=== PATIENT | male | born 1985 | race Two or more races ===

== ENCOUNTER 2021-01-22 04:20 | Day surgery (SDC) | payer OTHER, BC ==
[2021-01-16 11:47] VITALS: BMI 25.8
[2021-01-22] MEDS ORDERED: MIDAZOLAM HCL 2 MG/2 ML SINGLE DOSE VIAL ONE ×3 (11:24→11:33)
[2021-01-22] MEDS ORDERED: ONDANSETRON 4 MG/2 ML VIAL ONE (12:53)
[2021-01-22] MEDS ORDERED: ONDANSETRON 4 MG/2 ML VIAL IVPB ONE (12:55)
[2021-01-22] MEDS ORDERED: ONDANSETRON 4 MG/2 ML VIAL IVPUSH ONE (13:02)
[2021-01-22 15:20] VITALS: BP 136/80; PULSE 75; TEMP 97.5
== END 2021-01-22 14:00 | disposition home or self-care (01) ==
LOC: JASU-SURG 04:20
PROVIDERS: ATTEND Urology
PROC: 0TF3XZZ Fragmentation in Right Kidney Pelvis, External Approach (ICD-10-PCS; principal; 2021-01-22 10:30)
DX: N20.0 Calculus of kidney (principal)

== ENCOUNTER 2021-03-19 04:26 | Day surgery (SDC) | payer BC, OTHER ==
[2021-02-14 12:32] VITALS: BMI 25.8
[2021-03-19] MEDS ORDERED: GLYCOPYRROLATE 0.2 MG/1 ML VIAL ONE (15:32)
[2021-03-19] MEDS ORDERED: MIDAZOLAM HCL 2 MG/2 ML SINGLE DOSE VIAL ONE (15:32)
[2021-03-19] MEDS ORDERED: PROPOFOL 20 ML ONE ×4 (16:04→16:07)
[2021-03-19 18:01] VITALS: BP 143/92; PULSE 82; TEMP 97.3
== END 2021-03-19 17:55 | disposition home or self-care (01) ==
LOC: JASU-SURG 04:26
PROVIDERS: ATTEND Urology
PROC: 0TF4XZZ Fragmentation in Left Kidney Pelvis, External Approach (ICD-10-PCS; principal; 2021-03-19 13:30)
DX: N20.0 Calculus of kidney (principal)

== ENCOUNTER 2022-07-08 03:59 | Day surgery (SDC) | payer BC, OTHER ==
[2022-07-04 14:13] VITALS: BMI 24.3
[2022-07-08 12:14] VITALS: RESP 20
[2022-07-08] MEDS ORDERED: MIDAZOLAM HCL 2 MG/2 ML SINGLE DOSE VIAL ONE ×2 (14:16→14:49)
[2022-07-08] MEDS ORDERED: PROPOFOL 20 ML ONE (14:53)
[2022-07-08 18:17] VITALS: BP 120/70; PULSE 78; TEMP 98
== END 2022-07-08 16:40 | disposition home or self-care (01) ==
LOC: JASU-SURG 03:59
PROVIDERS: ATTEND Urology
PROC: 0TF3XZZ Fragmentation in Right Kidney Pelvis, External Approach (ICD-10-PCS; principal; 2022-07-08 13:30)
DX: N20.0 Calculus of kidney (principal)

== ENCOUNTER 2022-08-05 04:17 | Day surgery (SDC) | payer BC, OTHER ==
[2022-08-02 15:12] VITALS: BMI 24.3
[2022-08-05 13:37] VITALS: RESP 18
[2022-08-05] MEDS ORDERED: PROPOFOL 20 ML ONE ×2 (15:50→16:00)
[2022-08-05] MEDS ORDERED: MIDAZOLAM HCL 2 MG/2 ML SINGLE DOSE VIAL ONE (15:50)
[2022-08-05] MEDS ORDERED: LIDOCAINE HCL/PF 2% SDV 5ML VIAL ONE (15:51)
[2022-08-05 19:20] VITALS: BP 114/73; PULSE 73; TEMP 97.9
== END 2022-08-05 17:16 | disposition home or self-care (01) ==
LOC: JASU-SURG 04:17
PROVIDERS: ATTEND Urology
PROC: 0TC13ZZ Extirpation of Matter from Left Kidney, Percutaneous Approach (ICD-10-PCS; principal; 2022-08-05 15:00)
DX: N20.0 Calculus of kidney (principal)

== ENCOUNTER 2023-10-13 04:28 | Day surgery (SDC) | payer BC, OTHER ==
[2023-10-13 13:06] VITALS: BMI 25.0
[2023-10-13] MEDS ORDERED: MIDAZOLAM HCL 2 MG/2 ML SINGLE DOSE VIAL ONE ×2 (17:44→17:45)
[2023-10-13] MEDS ORDERED: PROPOFOL 20 ML ONE (18:08)
[2023-10-13] MEDS ORDERED: SUGAMMADEX SODIUM 200 MG/2 ML VIAL ONE (18:18)
[2023-10-13 18:52] VITALS: RESP 18
[2023-10-13] MEDS ORDERED: ONDANSETRON 4 MG/2 ML VIAL ONE (19:06)
[2023-10-13] MEDS: ONDANSETRON 4 MG/2 ML VIAL IVPB ONE (20:23)
[2023-10-13 20:55] VITALS: BP 129/72; PULSE 60; TEMP 97.8
== END 2023-10-13 20:50 | disposition home or self-care (01) ==
LOC: JASU-SURG 04:28
PROVIDERS: ATTEND Urology
PROC: 0TF4XZZ Fragmentation in Left Kidney Pelvis, External Approach (ICD-10-PCS; principal; 2023-10-13 15:30)
DX: N20.0 Calculus of kidney (principal)